=== PATIENT | female | born 1955 | race Caucasian/White ===

== ENCOUNTER 2022-05-18 14:55 | Outpatient (CLI) | payer MEDICARE, BC, SELFPAY ==
[2022-05-18 11:21] LABS: Albumin* 4.6 g/dL (3.3-5.0); Chloride* 104 mmol/L (96-114); Sodium* 139 mmol/L (135-149)
[2022-05-18 11:22] LABS: Potassium* 4.4 mmol/L (3.6-5.1)
[2022-05-18 11:23] LABS: Cholesterol* 185 mg/dL (90-199)
[2022-05-18 11:24] LABS: Alanine Aminotransferase* 17 U/L (4-35); Alkaline Phosphatase* 113 U/L (40-150); Aspartate Amino Transferase* 30 U/L (12-35); Bilirubin Total* 0.8 mg/dL (0.1-1.5); Blood Urea Nitrogen* 18 mg/dL (7-30); Carbon Dioxide* 25 mmol/L (20-32); Creatinine* 0.6 mg/dL (0.5-1.5); Estimated Glomerular Filt Rate 98 ml/min; Glucose* 95 mg/dL (60-115); Total Protein* 7.3 g/dL (6.0-8.3); Triglycerides* 93 mg/dL (40-149)
[2022-05-18 11:25] LABS: Calcium* 9.9 mg/dL (8.4-10.6); HDL Cholesterol* 72 mg/dL (>=50); LDL Cholesterol Calculated 94 mg/dL (<100)
== END 2022-05-18 14:56 | disposition home or self-care (01) ==
PROVIDERS: PCP Family Medicine; Visit Provider Family Medicine
DX: Z00.00 Encounter for general adult medical examination without abnormal findings (principal); E78.5 Hyperlipidemia, unspecified; M81.0 Age-related osteoporosis without current pathological fracture; R03.0 Elevated blood-pressure reading, without diagnosis of hypertension; R39.15 Urgency of urination
CPT/HCPCS: 80053; 80061

== ENCOUNTER 2022-05-19 07:51 | Outpatient (CLI) | payer MEDICARE, BC, SELFPAY ==
[2022-05-19 12:18] LABS: Vitamin D 25 Hydroxy* 61 ng/mL (30-80)
== END 2022-05-19 07:52 | disposition home or self-care (01) ==
LOC: NFLDREF 07:52
PROVIDERS: PCP Family Medicine; Visit Provider Family Medicine
DX: Z00.00 Encounter for general adult medical examination without abnormal findings (principal); E78.5 Hyperlipidemia, unspecified; R03.0 Elevated blood-pressure reading, without diagnosis of hypertension; M81.0 Age-related osteoporosis without current pathological fracture; R39.15 Urgency of urination
CPT/HCPCS: 82306

== ENCOUNTER 2022-06-30 13:11 | Outpatient (CLI) | payer MEDICARE, BC, SELFPAY ==
--- NOTE | 2022-06-30 13:30 | CRLHL7_ITS ---
For Patients: As a result of the Century Cures Act, medical imaging exams and procedure reports are released immediately into your electronic medical record. You may view this report before your referring provider. If you have questions, please contact your health care provider. DXA BONE MINERAL DENSITY STUDY Current height (in): 68. Weight (lb): 159. Menopause age: 50. Ethnicity: White. 1. Have you had a previous hip or vertebral fracture? No. 2. Have you had any fractures during your adult life which did not result from significant trauma (e.g., auto accident)? No. 3. Did either of your parents have a hip fracture? No. 4. Do you smoke? No. 5. Have you ever taken Glucocorticoids? No. 6. Do you have rheumatoid arthritis? No. 7. Do you have secondary osteoporosis? No. 8. Do you drink 3 or more alcoholic drinks per day? No. 9. Are you being treated for osteoporosis? No. 10. Have you ever taken any of the following medications: Actonel, Evista, Fosamax, Miacalcin, Reclast, Boniva, Forteo, HRT (i.e. estrogen/hormone therapy), Protelos, Prolia, Vitamin D, Calcium, other ??? please specify. ANSWER: Yes, vitamin D, calcium. 11. Do you have any of the following medical conditions: Anorexia or bulimia, asthma or emphysema, end stage renal disease, hyperparathyroidism, any seizure disorders, cancer, inflammatory bowel diseases, hysterectomy, other ??? please specify. ANSWER: Yes, Hysterectomy. 12. What was your maximum height (inches)? 68. 13. Do you perform weight bearing exercise regularly? Yes. 14. Do you regularly consume dairy products? Yes. 15. Do you drink caffeinated beverages? Yes. 16. At what age did your period start? 12. 17. Are you premenopausal? No. 18. How many full term pregnancies have you had? 2 19. Have you ever missed your period for more than 6 months in a row (not including or menopause)? No. TECHNIQUE: Bone mineral density study was performed using the [employer]. FINDINGS: The results of the study expressed as bone mineral density (BMD) are as follows: Lumbar spine L1 to L4: BMD: 0.686 g/cm2. T-score: -3.3. Z-score: -1.3. Neck Left: BMD: 0.560 g/cm2. T-score: -2.6. Z-score: -0.9. Right: BMD: 0.605 g/cm2. T-score: -2.2. Z-score: -0.5. Total Left: BMD: 0.699 g/cm2. T-score: -2.0. Z-score: -0.6. Right: BMD: 0.687 g/cm2. T-score: -2.1. Z-score: -0.7. IMPRESSION: Osteoporosis. *Comparison exams done prior to 03/2020 were performed on different unit, [employer] COMPARISON: Compared with scan of 06/19/2020, the bone mineral density has increased by 2.4 percent at the spine and decreased by 2.2 percent at the hip. Curtis Wise M.D. Diagnostic Radiologist [email or web address] KEVIN/Dictated by: Curtis Wise MD @ 06/30/2022 2:02:00 PM (Electronically Signed)
--- NOTE | 2022-06-30 14:00 | CRLHL7_ITS ---
For Patients: As a result of the Century Cures Act, medical imaging exams and procedure reports are released immediately into your electronic medical record. You may view this report before your referring provider. If you have questions, please contact your health care provider. BILATERAL SCREENING MAMMOGRAM WITH COMPUTER-AIDED DETECTION AND TOMOSYNTHESIS TECHNIQUE: CC and MLO views were obtained. These mammographic images have been obtained using full-field digital technique. These mammographic images were interpreted with the benefit of computer-aided detection. Breast Tomosynthesis was used in this interpretation. COMPARISON FILM: 06/30/21, 06/22/21, 06/19/20, MT-outside 05/30/2019 FINDINGS: The breasts are heterogeneously dense, which may obscure small masses. IMPRESSION: There is no radiographic evidence for malignancy. ASSESSMENT: BI-RADS Category 2: Benign RECOMMENDATION: Routine screening mammogram in 1 year. A lay language report of this examination will be provided to the patient. Curtis Wise M.D. Diagnostic Radiologist [email or web address] Transcribed: 1:02 p.m PT/Dictated by: Curtis Wise MD @ 07/01/2022 9:31:00 AM (Electronically Signed)
== END 2022-06-30 13:12 | disposition home or self-care (01) ==
LOC: RAD 13:13
PROVIDERS: PCP Family Medicine; Visit Provider Family Medicine
DX: Z12.31 Encounter for screening mammogram for malignant neoplasm of breast (principal); R92.8 Other abnormal and inconclusive findings on diagnostic imaging of breast; M81.0 Age-related osteoporosis without current pathological fracture
CPT/HCPCS: 77063; 77067; 77080

== ENCOUNTER 2023-05-17 07:20 | Outpatient (CLI) | payer MEDICARE, BC, SELFPAY | END 2023-05-17 07:21 | disposition home or self-care (01) | LOC: NFLDREF 12:32 | PROVIDERS: PCP Family Medicine; Referring Provider Family Medicine; Visit Provider Family Medicine | DX: R03.0 Elevated blood-pressure reading, without diagnosis of hypertension (principal); E78.5 Hyperlipidemia, unspecified; M81.0 Age-related osteoporosis without current pathological fracture | CPT/HCPCS: 80053; 80061; 82306 ==

== ENCOUNTER 2023-06-24 12:03 | Outpatient (CLI) | payer MEDICARE, BC, SELFPAY | END 2023-06-24 12:04 | disposition home or self-care (01) | LOC: NFLDREF 12:06 | PROVIDERS: PCP Family Medicine; Visit Provider Obstetrics & Gynecology | DX: L90.0 Lichen sclerosus et atrophicus (principal); R00.2 Palpitations | CPT/HCPCS: 84443 ==

== ENCOUNTER 2023-07-07 13:04 | Outpatient (CLI) | payer MEDICARE, BC, SELFPAY ==
--- NOTE | 2023-07-07 13:20 | CRLHL7_ITS ---
For Patients: As a result of the Century Cures Act, medical imaging exams and procedure reports are released immediately into your electronic medical record. You may view this report before your referring provider. If you have questions, please contact your health care provider. BILATERAL SCREENING MAMMOGRAM WITH COMPUTER-AIDED DETECTION AND TOMOSYNTHESIS TECHNIQUE: CC and MLO views were obtained. These mammographic images have been obtained using full-field digital technique. These mammographic images were interpreted with the benefit of computer-aided detection. Breast Tomosynthesis was used in this interpretation. COMPARISON FILM: 06/30/22, 06/22/21, 06/19/20. FINDINGS: The breasts are heterogeneously dense, which may obscure small masses IMPRESSION: There is no radiographic evidence for malignancy. ASSESSMENT: BI-RADS Category 2: Benign RECOMMENDATION: Routine screening mammogram in 1 year. A lay language report of this examination will be provided to the patient. Curtis Wise M.D. Diagnostic Radiologist [email or web address] KEVIN/Dictated by: Curtis Wise MD @ 07/08/2023 1:18:00 PM (Electronically Signed)
== END 2023-07-07 13:05 | disposition home or self-care (01) ==
LOC: MAMMO 13:05
PROVIDERS: PCP Family Medicine; Visit Provider Family Medicine
DX: Z12.31 Encounter for screening mammogram for malignant neoplasm of breast (principal); R92.2 Inconclusive mammogram
CPT/HCPCS: 77063; 77067

== ENCOUNTER 2024-05-15 07:30 | Outpatient (CLI) | payer MEDICARE, BC, SELFPAY | END 2024-05-15 07:31 | disposition home or self-care (01) | LOC: NFLDREF 05-16 11:19 | PROVIDERS: PCP Family Medicine; Referring Provider Family Medicine; Visit Provider Family Medicine | DX: M81.0 Age-related osteoporosis without current pathological fracture (principal); E78.5 Hyperlipidemia, unspecified; R03.0 Elevated blood-pressure reading, without diagnosis of hypertension | CPT/HCPCS: 80061; 82306; 82947 ==

== ENCOUNTER 2024-06-27 13:09 | Outpatient (CLI) | payer MEDICARE, BC, SELFPAY ==
--- NOTE | 2024-06-27 13:30 | CRLHL7_ITS ---
For Patients: As a result of the Century Cures Act, medical imaging exams and procedure reports are released immediately into your electronic medical record. You may view this report before your referring provider. If you have questions, please contact your health care provider. DXA BONE MINERAL DENSITY STUDY Current height (in): 68. Weight (lb): 168. Menopause age: 50. Ethnicity: White. 1. Have you had a previous hip or vertebral fracture? No. 2. Have you had any fractures during your adult life which did not result from significant trauma (e.g., auto accident)? No. 3. Did either of your parents have a hip fracture? No. 4. Do you smoke? No. 5. Have you ever taken Glucocorticoids? No. 6. Do you have rheumatoid arthritis? No. 7. Do you have secondary osteoporosis? No. 8. Do you drink 3 or more alcoholic drinks per day? No. 9. Are you being treated for osteoporosis? Yes. 10. Have you ever taken any of the following medications: Actonel, Evista, Fosamax, Miacalcin, Reclast, Boniva, Forteo, HRT (i.e. estrogen/hormone therapy), Protelos, Prolia, Vitamin D, Calcium, other ??? please specify. ANSWER: Yes, vitamin D, calcium. 11. Do you have any of the following medical conditions: Anorexia or bulimia, asthma or emphysema, end stage renal disease, hyperparathyroidism, any seizure disorders, cancer, inflammatory bowel diseases, hysterectomy, other ??? please specify. ANSWER: Yes, hysterectomy. 12. What was your maximum height (inches)? 68. 13. Do you perform weight bearing exercise regularly? Yes. 14. Do you regularly consume dairy products? Yes. No. 15. Do you drink caffeinated beverages? Yes. 16. At what age did your period start? 12. 17. Are you premenopausal? No. 18. How many full term pregnancies have you had? 2. 19. Have you ever missed your period for more than 6 months in a row (not including or menopause)? No. TECHNIQUE: Bone mineral density study was performed using the [employer]. FINDINGS: The results of the study expressed as bone mineral density (BMD) are as follows: Lumbar spine L1 to L4: BMD: 0.777 g/cm2. T-score: -2.5. Z-score: 0.4. Neck Left: BMD: 0.593 g/cm2. T-score: -2.3. Z-score: -0.5. Right: BMD: 0.617 g/cm2. T-score: -2.1. Z-score: -0.3. Total Left: BMD: 0.716 g/cm2. T-score: -1.9. Z-score: -0.4. Right: BMD: 0.751 g/cm2. T-score: -1.6. Z-score: 0.1. IMPRESSION: Osteoporosis. *Comparison exams done prior to 03/2020 were performed on different unit, [employer]. COMPARISON: Compared with scan of 06/30/2022, the bone mineral density has increased by 13.3 percent at the spine and increased by 5.9 percent at the hip. Compared with scan of 06/19/2020, the bone mineral density has increased by 2.4 percent at the spine and decreased by 2.2 percent at the hip. Aarti Forrester M.D. Diagnostic/Breast Radiologist [email or web address] KEVIN/Dictated by: Aarti Forrester MD @ 06/27/2024 3:43:00 PM (Electronically Signed)
== END 2024-06-27 13:10 | disposition home or self-care (01) ==
LOC: RAD 13:10
PROVIDERS: PCP Family Medicine; Visit Provider Family Medicine
DX: M81.0 Age-related osteoporosis without current pathological fracture (principal)
CPT/HCPCS: 77080

== ENCOUNTER 2024-07-09 12:44 | Outpatient (CLI) | payer MEDICARE, BC, SELFPAY ==
--- NOTE | 2024-07-09 13:00 | MR_ITS ---
[address] [address] Phone:?[phone] Fax:?[phone] Referring Physician Information: Frank Mclean M.D. [address] [facility] [address] Phone:?[phone] Fax:?[phone] Patient:?Simran Crocker D.O.B:?1955 Sex:?Female Phone:?[phone] [facility] MRN:?[id number] Exam Date:?07/09/2024 EXAM: MRI OF THE LUMBAR SPINE WITHOUT CONTRAST CLINICAL INFORMATION: Lumbar intervertebral disc degeneration. TECHNICAL INFORMATION: Sagittal fast spin-echo T2-weighted, T1-weighted, STIR as well as axial fast spin-echo T1 and T2-weighted images of the lumbar spine were obtained on a 1.5 Tamie MRI scanner.?SEDATION:?None.?CONTRAST:?None. INTERPRETATION: Correlation made with prior radiographs 06/29/2024. Generalized levocurvature. No acute fracture or spondylolysis, although edematous degenerative endplate changes are demonstrated right laterally at L2- 3. Conus is normal and terminates at T12-L1. Imaged upper sacrum and paraspinal soft tissue structures are unremarkable. Disc desiccation and annular bulging are demonstrated at L5-S1 through L2-3. Disc space narrowing is mild at L5-S1, moderately severe left laterally at L4-5, moderate left laterally at L3-4, severe at laterally at L2-3. L5-S1: 8 mm AP diameter right posterolateral disc extrusion (with some areas of interspersed internal increased T2 signal), resultant severe right subarticular recess narrowing and impingement upon the traversing right S1 nerve root, but no central stenosis. Mild bilateral facet hypertrophy with mild bilateral chronic foraminal narrowing. L4-5: Chronic mild left subarticular recess narrowing without traversing neural compression or central stenosis. Mild left facet arthrosis with mild right/mild to moderate left chronic foraminal narrowing. L3-4: Chronic mild left subarticular recess narrowing without traversing neural compression or central stenosis. Mild bilateral facet hypertrophy with mild bilateral chronic foraminal narrowing. L2-3: No central stenosis or traversing neural compression. Mild bilateral facet hypertrophy with mild left and mild to moderate right chronic foraminal narrowing. L1-2 through T11-12: Normal posterior disc margins and facets. Patent foramina. CONCLUSION: Multilevel degenerative lumbar spondylosis with the following notable findings: 1. 8 mm AP diameter right posterolateral L5-S1 disc extrusion (possibly with a contained internal hemorrhagic component) and resultant subarticular impingement upon the traversing right S1 nerve root, but no central stenosis. 2. No acute fracture or spondylolysis, although edematous degenerative endplate changes are demonstrated right laterally at L2-3. 3. Mild left L4-5 facet arthrosis. 4. Multilevel chronic foraminal narrowing that varies from mild to mild/moderate without ganglionic compression as detailed above. SC Electronically signed on 07/09/2024 4:50:00 PM by Fady Gresham M.D.
== END 2024-07-09 12:45 | disposition home or self-care (01) ==
LOC: MRI 12:45
PROVIDERS: PCP Family Medicine; Visit Provider Orthopaedic Surgery Sports Medicine
DX: M51.36 Other intervertebral disc degeneration, lumbar region (principal); M47.896 Other spondylosis, lumbar region; M16.12 Unilateral primary osteoarthritis, left hip; M54.16 Radiculopathy, lumbar region
CPT/HCPCS: 72148

== ENCOUNTER 2024-07-20 07:30 | Outpatient (RCR) | payer MEDICARE, BC, SELFPAY ==
--- NOTE | 2024-06-08 16:38 | PT.OPEX ---
PT [facility] Outpatient Eval PT [facility] Outpatient Eval Start: 06/08/24 07:25 Freq: Status: Active Protocol: Document 06/08/24 07:26 VINCE (Rec: 06/08/24 16:35 [facility] [id number]) E-signed By Aleksandra Feldman PT Physical Therapy Outpatient Evaluation Insurance Information Recert Due Date 06/08/24 Insurance Name Medicare B Medical Diagnosis BILATERAL KNEE OA SCIATICA Treating Diagnosis BILATERAL KNEE PAIN SCIATICA Imaging Report Information XRAYS: RIGHT KNEE: Severe narrowing of the medial tibiofemoral compartment joint space. Mild/moderate narrowing of lateral tibiofemoral compartment joint space. Small marginal osteophytes. No acute fracture. Left knee: Moderate to severe narrowing of the medial tibiofemoral compartment joint space. Mild/ moderate narrowing of the lateral tibiofemoral compartment joint space. No acute fracture. Referring MD PIKE Subjective Preferred Name SHAYLA Subjective PATIENT REPORTS SEVERAL INSTANCES OVER THE PAST 10-15 YRS WHERE SHE HAS PERFORMED LEFT ROTATION COMBINED WITH LIFTING THAT HAS FLARED HER RIGHT GLUT/SCIATIC. SHE HAD AN MRI ~10YRS AGO THAT SHE REPORTS WERE UNREMARKABLE. ROUGHLY 1MO AGO SHE WAS PICKING UP A COOLER THAT INVOLVED REACHING DOWN TWD HER LEFT AND LIFTING SHE RETURN TO [facility] WHICH IMMEDIATELY FLARED HER SCIATICA UP ONCE AGAIN. SHE HAS BEEN TAKING IBUPROFEN PRN AND SLEEPING ON THE COUCH D/T HER PREFERRED POSITION TO SLEEP IS PRONE. WHEN ROLLS OUT > THAT ROLLING INTO PRONE PRODUCES IMMEDIATE PAIN TO HER RIGHT POSTERIOR HIP EXTENDING TO HER KNEE. HER KNEES ARE NOT THE GREATEST CONCERN AT THIS TIME AND UNDERSTANDS THAT THE BOTH ARE BONE ON BONE BUT CONTINUES TO PUSH THROUGH HER 2MI/DAY WALK. SHE FINDS MOST OF HER PAIN WHEN SHE WALKS IS HER SCIATICA. Pain Comments 05/02 Current Work Status Retired Assessment Assessment/Impression PATIENT IS A 68 [address] PIKE FOR BILATERAL KNEE PAIN AND RIGHT SIDED SCIATICA; PMHX INCLUDES BUT NOT LIMITED OSTEOPOROSIS, HTN, HLD, AND H/O BACK PAIN. SHE DEMONSTRATES BILATERAL TIGHTNESS ABOUT HER HIPS RIGHT >LEFT, LUMBAR SPINE BOTH FLEX AND EXT SIGNIFICANT FOR LACK OF LORDOSIS NOTING A POSTERIORLY ROTATED RIGHT PSIS . MMT REVEALS 4-/5 GLUT R/L, 4 /5 HIP FLEX R/L, 5/5 KNEE EXT 4/5 HAMSTRING; NORMAL PATELLAR TENDON REFLEX 2+; SHE DESCRIBES INCREASED PAIN IN GLUT AND HAMSTRING WITH SITING , STANDING, LAYING SUPINE >5'; WHEN LYING PRONE, SHE DID NOT CENTRALIZE AND WITH PRONE ON ELBOWS SHE EXPERIENCED PERIPHERALIZATION TO FOOT THAT RESOLVED SOON SHE RETURN PRONE. POSTIVE SLR ON RIGHT AND ABSENT WHEN HIP IS 90DEGREES PERFORMING FLOSSING. WE DISCUSSED, AT LENGTH, THE PATHOPHYSIOLOGY OF SCIATICA ALONG WITH ANATOMY OF THE LUMBOPELVIC/HIP JOINT. SHE WOULD BENEFIT FROM SKILLED PHYSICAL THERAPY TO ADDRESS SYMPTOM MGMT, INCREASE LUMBOPELVIC FLEXIBILITY, CORE/ HIP STRENGTHENING, AND IMPROVE ROM. SHE VERBALIZED UNDERSTANDING TO ALL SKILLED INSTRUCTION AND APPROPRIATE FOR SKILLED PHYSICAL THERAPY Primary Functional Limitations PROLONG SITTING, STDG, LAYING SUPINE >5' WALKING COMMUNITY DISTANCES STOOPING, SQUATTING, STAIRS Plan of Care Rehabilitation Potential Good Physical Therapy Goals 1. DECREASE R/L HIP/HAMSTRING PAIN TO </2-3/10 WITH DAILY ACTIVITIES AND WITH THE PROGRESSION OF PHYSICAL THERAPY PROGRAM OVER THE NEXT 3-4 WEEKS 2. IMPROVE R HIP ROM TO WFL OVER THE NEXT 4-6 WEEKS FOR IMPROVED GAIT MECHANICS, RETURN TO TRANSFERS W/O ASSISTANCE AND WITH EASE, AND RETURN TO ASCENDING/DESCENDING STAIRS WITH RECIPROCAL GAIT 3. IMPROVE CORE/LE COMPLEX STRENGTH OVER THE NEXT 6-8 WEEKS FOR RETURN TO TRANSFERS WITH EASE, NORMAL GAIT WITH/ WITHOUT AD, AND STANDING/ WALKING >10MIN WITHOUT A FLARE UP OF PAIN 4. PATIENT WILL BE INDEPENDENT WITH HIS HEP WITHIN 8-12 WEEKS FOR PROGRESSION TOWARD ABOVE GOALS, ONGOING IMPROVEMENT OF PAIN/SYMPTOMS, ROM, STRENGTH, AND MOBILITY TO RETURN TO DAILY ACTIVITIES AND FAMILY CENTERED ACTIVITIES W/O FLARE UP OF PAIN/SYMPTOMS Coordination/Communication With Referral Source Treatment Plan/Direct Interventions Electrical Stimulation,Heat, Ice/Cold/Vasopneumatic,Joint Mobilization,Manual Therapy, Neuromuscular Re-ed,Self-Care/ Home Management,Therapeutic Activities,Therapeutic Exercises Frequency/Duration 1X/WK Patient Will Be Discharged From Therapy Completion of LTG(s), Independent w/HEP Evaluation Billing Untimed Code Treatment Minutes 20 PT Eval No Charge No Complexity Moderate Certification Information Provider Signature Required Yes Provider Signature Shows Agreement With POC & Medical Necessity Physician NPI Number Write NPI# Here Physician Comment/Change : Physician Signature & Date Requested Please Sign/Date Here
== END 2024-09-03 13:52 | disposition home or self-care (01) ==
PROVIDERS: PCP Family Medicine; Visit Provider Family Medicine
DX: M17.0 Bilateral primary osteoarthritis of knee (principal); M54.31 Sciatica, right side; Z51.89 Encounter for other specified aftercare
CPT/HCPCS: 97110; 97162

== ENCOUNTER 2024-08-21 13:06 | Outpatient (CLI) | payer MEDICARE, BC, SELFPAY ==
--- NOTE | 2024-08-21 13:20 | CRLHL7_ITS ---
For Patients: As a result of the Century Cures Act, medical imaging exams and procedure reports are released immediately into your electronic medical record. You may view this report before your referring provider. If you have questions, please contact your health care provider. BILATERAL SCREENING MAMMOGRAM WITH COMPUTER-AIDED DETECTION AND TOMOSYNTHESIS TECHNIQUE: CC and MLO views were obtained. These mammographic images have been obtained using full-field digital technique. These mammographic images were interpreted with the benefit of computer-aided detection. Breast Tomosynthesis was used in this interpretation. COMPARISON FILM: 07/10/23, 06/30/22, 06/22/21. FINDINGS: The breasts are heterogeneously dense, which may obscure small masses IMPRESSION: There is no radiographic evidence for malignancy. ASSESSMENT: BI-RADS Category 2: Benign RECOMMENDATION: Routine screening mammogram in 1 year. A lay language report of this examination will be provided to the patient. Curtis Wise M.D. Diagnostic Radiologist [email or web address] KEVIN/Dictated by: Curtis Wise MD @ 08/22/2024 9:30:00 AM (Electronically Signed)
== END 2024-08-21 13:07 | disposition home or self-care (01) ==
LOC: MAMMO 13:07
PROVIDERS: PCP Family Medicine; Visit Provider Family Medicine
DX: Z12.31 Encounter for screening mammogram for malignant neoplasm of breast (principal); R92.333 Mammographic heterogeneous density, bilateral breasts
CPT/HCPCS: 77063; 77067

== ENCOUNTER 2024-09-11 08:10 | Outpatient (CLI) | payer MEDICARE, BC, SELFPAY | END 2024-09-11 08:11 | disposition home or self-care (01) | LOC: NFLDREF 09-14 23:52 | PROVIDERS: PCP Family Medicine; Referring Provider Family Medicine; Visit Provider Family Medicine | DX: I10 Essential (primary) hypertension (principal) | CPT/HCPCS: 80048 ==

== ENCOUNTER 2024-10-08 06:46 | Day surgery (SDC) | payer MEDICARE, BC, SELFPAY ==
[2024-10-08] VITALS (20 sets, daily range): BP systolic 110–147; BP diastolic 59–83; PULSE 62–90; RESP 13–18; TEMP 36.1–36.9; O2SAT 97–100; BMI 25.6
[2024-10-08] MEDS: ACETAMINOPHEN 500 MG TABLET 1000 MG PO (07:30)
[2024-10-08] MEDS: LACTATED RINGERS 1000 ML 1,000 ML 100 ML IV (07:30)
[2024-10-08] MEDS: OXYCODONE (CR) 10 MG TAB.ER.12H PO (07:30)
[2024-10-08] MEDS: SODIUM CHLORIDE 0.9 % (FLUSH) 10 ML SYRINGE IVF (07:30)
--- NOTE | 2024-10-08 07:35 | W.PM.H&PU ---
History & Physical Update History & Physical Update H&P Reviewed and patient assessed: No changes noted
--- NOTE | 2024-10-08 08:34 | SUR.PREOP ---
TIME?OUT:?0843 PT/RN/MDA?VERIFICATION?OF?SURGICAL?SITE,?PROCEDURE,?AND?CONSENT OBTAINED?PRIOR?TO?INVASIVE?PROCEDURE.
[2024-10-08] MEDS: fentaNYL 100 MCG/2 ML inj IVP (08:44)
[2024-10-08] MEDS: MIDAZOLAM HCL 1 MG/ML inj IVP (08:44)
[2024-10-08] MEDS: CEFAZOLIN 2 GM in 0.9 % SODIUM CHLORIDE Mini-bag 100 ML IVPB (09:17)
[2024-10-08] MEDS: TRANEXAMIC ACID 100 MG/ML INJ 1000 MG IV (09:20)
--- NOTE | 2024-10-08 09:28 | W.PM.NB ---
Nerve Block Nerve Block Time Seen by Provider: 08:47 Date Seen: 10/08/24 Type of block requested by surgeon for post-operative analgesia: geniculars Side: right Time out performed: Yes Verification of patient name: Yes Verification of date of : Yes Site marking: site marked Name of person performing procedure: Mich Continuous monitoring Was continuous monitoring of O2 sat, B/P, beaver trapper, recorded every 15 minutes?: Yes Procedure Checklist: sterile prep, needles and gloves Ultrasound guided. Images saved: Yes Medications given in 5ml increments after negative aspiration: Marcaine %: 0.25 mL: 9 Needle gauge: 25 Patient tolerated procedure well: Yes Block Charges Block Charge (with Pro Fee): Genicular Nerve Block
--- NOTE | 2024-10-08 09:29 | W.PM.NB ---
Nerve Block Nerve Block Time Seen by Provider: 08:47 Date Seen: 10/08/24 Type of block requested by surgeon for post-operative analgesia: adductor canal Side: right Time out performed: Yes Verification of patient name: Yes Verification of date of : Yes Site marking: site marked Name of person performing procedure: Mich Continuous monitoring Was continuous monitoring of O2 sat, B/P, monitor worker, recorded every 15 minutes?: Yes Procedure Checklist: sterile prep, needles and gloves Ultrasound guided. Images saved: Yes Medications given in 5ml increments after negative aspiration: Marcaine %: 0.25 mL: 15 Needle gauge: 20 Precedex (mcg): 25 Patient tolerated procedure well: Yes Block Charges Block Charge (with Pro Fee): Femoral Nerve Use of Ultrasound Machine for Block: Yes- US Guidance/pain block
--- NOTE | 2024-10-08 10:02 | CRLHL7_ITS ---
For Patients: As a result of the Cures Act, medical imaging exams and procedure reports are released immediately into your electronic medical record. You may view this report before your referring provider. If you have questions, please contact your health care provider. Indication: Total knee replacement Technique: Two views right knee Findings/Impression: Hardware from a right total knee arthroplasty is in satisfactory position. Bone alignment is normal. No sign of acute fracture. Postop changes are within normal limits. Dictated by Curtis Wise MD @ 10/08/2024 11:42:24 AM (Electronically Signed)
--- NOTE | 2024-10-08 10:33 | PM.ORPRC ---
Procedure Note Date of procedure: 10/08/24 Procedure: PREOPERATIVE DIAGNOSIS: 1. Right knee osteoarthritis, primary, severe POSTOPERATIVE DIAGNOSIS: 1. Right knee osteoarthritis, primary, severe PROCEDURE: 1. Right total knee arthroplasty - subvastus SURGEON: Frank Mclean MD. BIZTALK ARCHITECT: NASIMA Wellington - Of note, a skilled business development assistant was critical for this case to aid in patient positioning, tissue retraction, limb manipulation/positioning, and closure. ANESTHESIA: Spinal anesthetic IMPLANTS: DePuy J&J all cemented TKA - Attune PS femur size 6 Size 6 tibia 6 mm poly spacer 35 mm patella TOURNIQUET: 80 minutes at 300 torr EBL: 50 ml COMPLICATIONS: None evident INDICATIONS: The patient is a pleasant 68-year-old female who has experienced severe right knee pain and difficulty bearing weight. Workup included x-rays which revealed severe osteoarthrosis in the knee. Given the deformity, the dysfunction, and the pain, as well as the failure of nonoperative management, recommendation was made for surgery. FINDINGS: Full-thickness chondral loss diffusely throughout the medial compartment especially. To lesser degree lateral compartment and patellofemoral compartment. Degenerative meniscus pathology medial greater than lateral. Porous cancellous bone encountered after irrigation. Large effusion upon entering the joint. DESCRIPTION OF PROCEDURE: Following a thorough discussion of risks, benefits, and alternatives consent was obtained and the right knee was marked. The patient was brought to the operating room and placed supine on the operating table. Induction of anesthesia was undertaken. 1 g IV Ancef and 1 g tranexamic acid was administered within 1 hr of incision preoperatively. Proper time-out was performed identifying proper patient, site, procedure. The operative extremity was prepped and draped in the appropriate sterile fashion using ChloraPrep after the patient was positioned supine with all bony prominences well padded. A longitudinal, anterior, midline skin incision was made starting approximately 3cm proximal to the superior pole of the patella and advanced distal to the tibial tubercle. A subvastus approach was utilized. A medial subperiosteal sleeve was created with knife, barnett elevator and curved osteotome. The retropatellar fatpad was resected and the synovium in the suprapatellar pouch excised to visualize the anterior femoral cortex. Femoral preparation was performed via an intramedullary guide. Step drill allowed access into the femoral canal. The distal cutting guide was placed with 5? of valgus and 10 mm cut on the distal femur. Femur was sized using a posterior referencing guide in 3? of external rotation. This found have a best fit with the sizing noted above. The 4 in 1 cutting block was then placed, and the distal femur shaped accordingly. The box cut was then created and the trial implant inserted to confirm appropriate fit. We turned our attention to the proximal tibia. Extramedullary guide was utilized for cutting with the goal of being 90 degree cut from the mechanical axis of the tibia in the varus/valgus plane utilizing tibial crest as the primary alignment. Initially a 2 mm resection was performed from the medial tibial plateau. Ultimately, balancing was achieved in both flexion and extension in both varus and valgus. The knee was able to achieve full extension as well comfortably. The patella was initially measured and found have a thickness of 23 mm. It was resected back to approximately 14.5 mm. It was sized to be a best fit with as noted above. This was drilled, trial placed. All trials were placed and found to have an excellent stability and balance. At this stage, trial implants were removed, the knee was thoroughly irrigated with normal saline, and the cement was mixed. After irrigation, the knee was thoroughly dried, and cement placed, with the real tibial and femoral implants placed along with the patella. Trial poly spacer was placed and confirmed to have excellent range of motion and full extension, and the real poly spacer opened and inserted. All extra cement was removed, and a 3 min Betadine soak performed. Finally, a final irrigation round with normal saline was performed. Closure performed with 0 Vicryl and #0 Stratafix for the quad tendon/retinaculum. 2-0 Vicryl for the subcutaneous and 4-0 Stratafix for subcuticular closure. Dressings were applied and the patient was awoken from anesthesia after the tourniquet deflated and transferred the PACU in stable condition. A skilled business development assistant was critical for this case to aid in patient positioning, tissue retraction, bone exposure, limb manipulation/positioning, patient safety, and closure. PLAN: 1. Weight bear as tolerated operative extremity. 2. 23 hr perioperative antibiotics. 3. Ice. 4. PT/OT consults for ambulation assistance/mobility education. 5. Social work consult for discharge planning. 6. DVT prophylaxis with at SCDs and aspirin twice daily.
--- NOTE | 2024-10-08 11:06 | W.ANESCHARGE ---
Anesthesia Charges Start Date/Time Anesthesia Start Date: 10/08/24 Anesthesia Start Time: 09:11 Stop Date/Time Anesthesia Stop Date: 10/08/24 Anesthesia Stop Time: 11:05
[2024-10-08] MEDS: ONDANSETRON 2 MG/ML inj 4 MG IVP (11:23)
--- NOTE | 2024-10-08 11:37 | SUR.PHASEI ---
patient met discharg criteria per anesthesia
[2024-10-08] MEDS: METOCLOPRAMIDE HCL 5 MG/ML INJ 10 MG IVP (13:00)
== END 2024-10-08 15:27 | disposition home or self-care (01) ==
LOC: OR 06:46
PROVIDERS: PCP Family Medicine; Visit Provider Orthopaedic Surgery Sports Medicine
PROC: (CPT 27447; principal; 2024-10-08 08:45)
DX: M17.11 Unilateral primary osteoarthritis, right knee (principal); M23.200 Derangement of unspecified lateral meniscus due to old tear or injury, right knee; M23.203 Derangement of unspecified medial meniscus due to old tear or injury, right knee; G89.18 Other acute postprocedural pain; I10 Essential (primary) hypertension; M51.16 Intervertebral disc disorders with radiculopathy, lumbar region
CPT/HCPCS: 27447; 01402; 64447; 64454; 73560; 76942; 97110; 97116; 97161; 97530; A9270; C1776; J0665; J0690; J2250; J2371; J2405; J2704; J2765; J3010; J7120

== ENCOUNTER 2024-11-22 14:45 | Outpatient (RCR) | payer MEDICARE, BC, SELFPAY | END 2024-12-27 13:10 | disposition home or self-care (01) | PROVIDERS: PCP Family Medicine; Visit Provider Family Medicine | DX: M17.11 Unilateral primary osteoarthritis, right knee (principal); Z96.651 Presence of right artificial knee joint; M25.561 Pain in right knee; R53.1 Weakness; R26.89 Other abnormalities of gait and mobility; Z51.89 Encounter for other specified aftercare | CPT/HCPCS: 97110; 97112; 97140; 97161; 97164; 97535 ==

== ENCOUNTER 2025-03-19 08:28 | Outpatient (CLI) | payer MEDICARE, BC, SELFPAY | END 2025-03-19 08:29 | disposition home or self-care (01) | LOC: NFLDREF 08:29 | PROVIDERS: PCP Family Medicine; Visit Provider Family Medicine | DX: I10 Essential (primary) hypertension (principal) | CPT/HCPCS: 80048 ==

== ENCOUNTER 2025-04-01 06:50 | Day surgery (SDC) | payer MEDICARE, BC, SELFPAY ==
[2025-04-01] VITALS (29 sets, daily range): BP systolic 93–149; BP diastolic 53–86; PULSE 54–87; RESP 13–17; TEMP 36.1–36.8; O2SAT 96–100; BMI 25.5
[2025-04-01] MEDS: OXYCODONE (CR) 10 MG TAB.ER.12H PO (07:00)
[2025-04-01] MEDS: ACETAMINOPHEN 500 MG TABLET 1000 MG PO (07:00)
[2025-04-01] MEDS: SODIUM CHLORIDE 0.9 % (FLUSH) 10 ML SYRINGE IVF (07:30)
[2025-04-01] MEDS: LACTATED RINGERS 1000 ML 1,000 ML 100 ML IV ×2 (07:30→12:28)
--- NOTE | 2025-04-01 07:47 | W.PM.H&PU ---
History & Physical Update History & Physical Update H&P Reviewed and patient assessed: No changes noted
[2025-04-01] MEDS: fentaNYL 100 MCG/2 ML inj IVP (08:15)
[2025-04-01] MEDS: MIDAZOLAM HCL 1 MG/ML inj IVP (08:15)
--- NOTE | 2025-04-01 08:16 | SUR.PREOP ---
TIME?OUT:?0814 PT/RN/MDA?VERIFICATION?OF?SURGICAL?SITE,?PROCEDURE,?AND?CONSENT OBTAINED?PRIOR?TO?INVASIVE?PROCEDURE.
[2025-04-01] MEDS: CEFAZOLIN 1 GM inj IVP (09:28)
[2025-04-01] MEDS: TRANEXAMIC ACID 100 MG/ML INJ 1000 MG IV (09:29)
--- NOTE | 2025-04-01 10:08 | P.NB_ITS ---
Nerve Block Nerve Block Time Seen by Provider: 08:15 Date Seen: 04/01/25 Type of block requested by surgeon for post-operative analgesia: adductor canal Side: left Time out performed: Yes Verification of patient name: Yes Verification of date of : Yes Site marking: site marked Name of person performing procedure: Mich Continuous monitoring Was continuous monitoring of O2 sat, B/P, monitoring manager, recorded every 15 minutes?: Yes Procedure Checklist: sterile prep, needles and gloves Ultrasound guided. Images saved: Yes Medications given in 5ml increments after negative aspiration: Marcaine %: 0.25 mL: 15 Needle gauge: 20 Precedex (mcg): 25 Patient tolerated procedure well: Yes Block Charges Block Charge (with Pro Fee): Femoral Nerve Use of Ultrasound Machine for Block: Yes- US Guidance/pain block
--- NOTE | 2025-04-01 10:08 | P.NB_ITS ---
Nerve Block Nerve Block Time Seen by Provider: 08:15 Date Seen: 04/01/25 Type of block requested by surgeon for post-operative analgesia: geniculars Side: left Time out performed: Yes Verification of patient name: Yes Verification of date of : Yes Site marking: site marked Name of person performing procedure: Mich Continuous monitoring Was continuous monitoring of O2 sat, B/P, compliance monitor, recorded every 15 minutes?: Yes Procedure Checklist: sterile prep, needles and gloves Ultrasound guided. Images saved: Yes Medications given in 5ml increments after negative aspiration: Marcaine %: 0.25 mL: 9 Needle gauge: 25 Patient tolerated procedure well: Yes Block Charges Block Charge (with Pro Fee): Genicular Nerve Block
--- NOTE | 2025-04-01 10:08 | P.ANES_ITS ---
Anesthesia Charges Start Date/Time Anesthesia Start Date: 04/01/25 Anesthesia Start Time: 09:12 Stop Date/Time Anesthesia Stop Date: 04/01/25 Anesthesia Stop Time: 11:25 Summary Extremes of Age - Over 70 or under 1: MDA Coding CPT Codes CPT Codes: ANESTH KNEE ARTHROPLASTY - 74567 ([id number]) P2 - PATIENT W/MILD SYST DISEASE, QK - GROUP INSURANCE SPECIAL AGENT 2-4 CNCRNT ANES PROC, QX - SHORTAGE WORKER SVC W/ MD MED DIRECTION Additional Codes: Summary - Extremes of Age - Over 70 or under 1: MDA ([id number])
--- NOTE | 2025-04-01 10:08 | W.ANESCHARGE ---
Anesthesia Charges Start Date/Time Anesthesia Start Date: 04/01/25 Anesthesia Start Time: 09:12 Stop Date/Time Anesthesia Stop Date: 04/01/25 Anesthesia Stop Time: 11:25 Summary Extremes of Age - Over 70 or under 1: MDA Coding CPT Codes CPT Codes: ANESTH KNEE ARTHROPLASTY - 29611 ([id number]) P2 - PATIENT W/MILD SYST DISEASE, QK - TRANSPORTATION BROKER 2-4 CNCRNT ANES PROC, QX - HIGHWAY PATROL PILOT SVC W/ MD MED DIRECTION Additional Codes: Summary - Extremes of Age - Over 70 or under 1: MDA ([id number])
--- NOTE | 2025-04-01 10:38 | P.ORPRC_ITS ---
Procedure Note Date of procedure: 04/01/25 Procedure: PREOPERATIVE DIAGNOSIS: 1. Left knee osteoarthritis, primary, severe POSTOPERATIVE DIAGNOSIS: 1. Left knee osteoarthritis, primary, severe PROCEDURE: 1. Left total knee arthroplasty - subvastus SURGEON: Frank Mclean MD. FLIGHT COMMUNICATIONS OPERATOR: Merary De La O PA-C - Of note, a skilled benefits assistant was critical for this case to aid in patient positioning, tissue retraction, limb manipulation/positioning, and closure. ANESTHESIA: Spinal anesthetic EBL: 50ml IMPLANTS: DePuy J&J all cemented TKA - Attune PS femur size 6 Size 4 tibia 5 poly spacer 35mm patella TOURNIQUET: 80 minutes at 300 torr COMPLICATIONS: None evident INDICATIONS: The patient is a pleasant 69 year old female who has experienced severe left knee pain and difficulty bearing weight. Workup included x-rays which revealed severe osteoarthrosis in the knee. Given the deformity, the dysfunction, and the pain, as well as the failure of nonoperative management, recommendation was made for surgery. FINDINGS: Full-thickness chondral loss diffusely throughout the medial patellofemoral compartment. To lesser degree lateral compartment. Degenerative meniscus pathology medial greater than. Moderate effusion upon entering the joint. DESCRIPTION OF PROCEDURE: Following a thorough discussion of risks, benefits, and alternatives consent was obtained and the left knee was marked. The patient was brought to the operating room and placed supine on the operating table. Induction of anesthesia was undertaken. 2 g IV Ancef and 1 g tranexamic acid was administered within 1 hr of incision preoperatively. Proper time-out was performed identifying proper patient, site, procedure. The operative extremity was prepped and draped in the appropriate sterile fashion using ChloraPrep after the patient was positioned supine with all bony prominences well padded. A longitudinal, anterior, midline skin incision was made starting approximately 3cm proximal to the superior pole of the patella and advanced distal to the tibial tubercle. A subvastus approach was utilized. A medial subperiosteal sleeve was created with knife, barnett elevator and curved osteotome. The retropatellar fatpad was resected and the synovium in the suprapatellar pouch excised to visualize the anterior femoral cortex. Femoral preparation was performed via an intramedullary guide. Step drill allowed access into the femoral canal. The distal cutting guide was placed with 5? of valgus and 10 mm cut on the distal femur due to a 10?+ flexion contracture. Femur was sized using a posterior referencing guide in 3? of external rotation. This found have a best fit with the sizing noted above. The 4 in 1 cutting block was then placed, and the distal femur shaped accordingly. The box cut was then created and the trial implant inserted to confirm appropriate fit. We turned our attention to the proximal tibia. Extramedullary guide was utilized for cutting with the goal of being 90 degree cut from the mechanical axis of the tibia in the varus/valgus plane utilizing tibial crest as the primary alignment. Initially a 2 mm resection was performed from the medial tibial plateau. Ultimately, balancing was achieved in both flexion and extension in both varus and valgus. The knee was able to achieve full extension as well comfortably. The patella was initially measured and found have a thickness of 23 mm. It was resected back to approximately 14 mm. It was sized to be a best fit with as noted above. This was drilled, trial placed. All trials were placed and found to have an excellent stability and balance. At this stage, trial implants were removed, the knee was thoroughly irrigated with normal saline, and the cement was mixed. After irrigation, the knee was thoroughly dried, and cement placed, with the real tibial and femoral implants placed along with the patella. Trial poly spacer was placed and confirmed to have excellent range of motion and full extension, and the real poly spacer opened and inserted. All extra cement was removed, and a 3 min Betadine soak performed. Finally, a final irrigation round with normal saline was performed. Closure performed with 0 PDS and #0 Stratafix for the quad tendon/retinaculum. 2-0 Vicryl/Stratafix for the subcutaneous and 4-0 Monocryl for subcuticular closure. Dressings were applied and the patient was awoken from anesthesia after the tourniquet deflated and transferred the PACU in stable condition. A skilled benefits assistant was critical for this case to aid in patient positioning, tissue retraction, bone exposure, limb manipulation/positioning, patient safety, and closure. PLAN: 1. Weight bear as tolerated operative extremity. 2. 23 hr perioperative antibiotics. 3. Ice. 4. PT/OT consults for ambulation assistance/mobility education. 5. Social work consult for discharge planning. 6. DVT prophylaxis with at SCDs and aspirin twice daily.
--- NOTE | 2025-04-01 11:21 | CRLHL7_ITS ---
For Patients: As a result of the Cures Act, medical imaging exams and procedure reports are released immediately into your electronic medical record. You may view this report before your referring provider. If you have questions, please contact your health care provider. Indication: total knee replacement Technique: Two views left knee Findings/Impression: Hardware from a left total knee arthroplasty is in satisfactory position. Bone alignment is normal. No sign of acute fracture. Postop changes are within normal limits. Stable bone island left proximal tibia. Dictated by Curtis Wise MD @ 04/02/2025 11:26:26 AM (Electronically Signed)
--- NOTE | 2025-04-01 11:22 | P.ANES_ITS ---
Anesthesia Charges Start Date/Time Anesthesia Start Date: 04/01/25 Anesthesia Start Time: 09:12 Stop Date/Time Anesthesia Stop Date: 04/01/25 Anesthesia Stop Time: 11:25 Coding CPT Codes CPT Codes: ANESTH KNEE ARTHROPLASTY - 69225 ([id number]) QK - ORDER DETAILER 2-4 CNCRNT ANES PROC, QX - CONCRETE BLOCK MAKER SVC W/ MD MED DIRECTION, P2 - PATIENT W/MILD SYST DISEASE
--- NOTE | 2025-04-01 11:22 | W.ANESCHARGE ---
Anesthesia Charges Start Date/Time Anesthesia Start Date: 04/01/25 Anesthesia Start Time: 09:12 Stop Date/Time Anesthesia Stop Date: 04/01/25 Anesthesia Stop Time: 11:25 Coding CPT Codes CPT Codes: ANESTH KNEE ARTHROPLASTY - 25315 ([id number]) QK - CRIME LAB ANALYST 2-4 CNCRNT ANES PROC, QX - FIRE CHIEF SVC W/ MD MED DIRECTION, P2 - PATIENT W/MILD SYST DISEASE
[2025-04-01] MEDS: ONDANSETRON 2 MG/ML inj 4 MG IVP (11:51)
[2025-04-01] MEDS: METOCLOPRAMIDE HCL 5 MG/ML INJ 10 MG IVP (12:01)
--- NOTE | 2025-04-01 12:12 | SUR.PHASEI ---
patient met discharge criteria per anesthesia
--- NOTE | 2025-04-01 15:45 | SUR.PHASEII ---
Pt at PT from 3pm-3:35pm. Pt used restroom and then discharged home.
== END 2025-04-01 15:46 | disposition home or self-care (01) ==
LOC: OR 06:50
PROVIDERS: PCP Family Medicine; Visit Provider Orthopaedic Surgery Sports Medicine
PROC: (CPT 27447; principal; 2025-04-01 08:45)
DX: M17.12 Unilateral primary osteoarthritis, left knee (principal); G89.18 Other acute postprocedural pain
CPT/HCPCS: 27447; 01402; 64447; 64454; 73560; 76942; 97110; 97116; 97161; 97530; 99100; A9270; C1776; J0665; J0690; J1100; J2250; J2405; J2704; J2765; J3010; J7120

== ENCOUNTER 2025-05-16 08:30 | Outpatient (RCR) | payer MEDICARE, BC, SELFPAY ==
--- NOTE | 2025-04-03 16:44 | PT.OPEX ---
PT [facility] Eval PT [facility] Outpatient Eval Start: 04/03/25 12:59 Freq: Status: Active Protocol: Document 04/03/25 12:59 VINCE (Rec: 04/03/25 15:40 VINCE [id number]) E-signed By Aleksandra Feldman PT Physical Therapy Outpatient Evaluation Insurance Information Recert Due Date 07/01/25 Insurance Name Medicare B Medical Diagnosis LEFT KNEE OA Treating Diagnosis LEFT KNEE PAIN LEFT KNEE WEAKNESS LEFT KNEE STIFFNESS Referring MD RUSSELL Subjective Preferred Name SHAYLA Subjective SHAYLA RETURNS TODAY HAVING UNDERWENT A LEFT TKA ON 04/01/25 AND REPORTING, THIS KNEE IS BETTER THAN MY OTHER KNEE BACK IN SEPTEMBER. SHE IS NOT USING AN ASSISTIVE DEVICE AND REPORTS DILIGENT USE OF HER ICE SINCE SURGERY BUT NO MUCH PAIN TO SPEAK OF YET. SHE IS AN AVID HIKER AND, OVERALL ACTIVE PERSON WITH HOPES OF HAVING BETTER MGMT OF HER BACK ISSUES NOW THAT HER KNEES ARE NOT A PART OF THE PROBLEM. Pain Comments Date of Next 04/09/25 Physician Visit Date of Surgery (If 04/01/25 applicable) Current Work Status Retired Precautions Treatment PMHX: HEART MURMUR, HLD, RIGHT SCIATICA, LUMBAR Precautions/ RADICULOPATHY (RIGHT), LUMBAR DDD, HTN, OSTEOPOROSIS, H Contraindications /O RIGHT TKA 10/08/24 Weight Bearing Weight Bear as Tolerated Status Therapy Limitations/ Not Limited Systems Review Objective Other/Pertinent 04/03/25: 5-0-112; MOD EDEMA/ECHYMOSIS ABOUT THE THIGH, Objective KNEE AND CALF; BANDAGE INTACT Functional Test [id number] Performed & Score Assessment Assessment/ PATIENT IS A 69YO REFERRED BY CLIFF RUSSELL TO EVAL AND Impression TREAT S/P LEFT TKA (04/17). PATIENT DEMONSTRATES SIGNS AND SYMPTOMS CONSISTENT WITH S/P LEFT TKA (04/17) CONTRIBUTING TO THEIR FUNCTIONAL IMPAIRMENTS OF DIFFICULTY AMB COMMUNITY DISTANCE, STAIRS, SIT TO STAND TRANSFERS. PATIENT DESCRIBES THE FOLLOWING TRIGGERS WEIGHT FLEXION, STAIRS, PROLONGED STDG/WALKING WHICH ARE ALLEVIATED BY REST, ICE, AND PO OTC . PATIENT HAS NOTABLE OBJECTIVE FINDING INCLUDING MIN/MOD PAIN ABOUT THE THIGH AND KNEE WITH MOD EDEMA/ECCHYMOSIS, DECREASED ROM (5-0-110)/STRENGTH/AND FUNCTIONAL BALANCE WHICH ALL ARE CONTRIBUTING TO THE CLINICAL IMPRESSION. SHAYLA DEMONSTRATES INCREDIBLE ROM AND FUNCTIONAL GAIT FOR POD2. SHE IS REMINDED TO HONOR THE HEALING PROCESS AND LIMIT HER ACTIVITY TO FUNCTIONAL ACTIVITIES, PERFORM HER HEP INSTRUCTED, AND CONTINUE TO USE FREQUENTLY FOR SYMPTOM MGMT. PATIENT IS A GOOD CANDIDATE FOR SKILLED PHYSICAL THERAPY TO ADDRESS AFOREMENTIONED DEFICITS ABOVE IN ORDER TO RETURN TO HER COMMUNITY AMB, FAMILY AND PEER CENTERED ACTIVITIES, WELL HER HIKING. INTERVENTION IS NECESSARY BY WAY OF THERAPEUTIC EXERCISE, MANUAL THERAPY, NEUROMUSCULAR RE-EDUCATION, STABILIZATION/PROPRIOCEPTION, MODALITIES FOR SYMPTOM MGMT, PATIENT EDUCATION PLEASE REFER TO APPROPRIATE SECTION WITHIN THIS EVALUATION FOR COMPLETE LIST OF GOALS AND PLAN OF CARE. DISCHARGE PLAN AND CRITERIA IS FOR PATIENT TO ACHIEVE THE GOALS LISTED BELOW OR UNTIL MAX POTENTIAL MET. PATIENT VERBALIZED UNDERSTANDING AND AGREEABLE TO POC, FREQ, AND GOALS ESTABLISHED. Primary Functional TRANSFERS Limitations GAIT STOOPING KNEELING STAIRS STDG PAIN Plan of Care Rehabilitation Good Potential Physical Therapy 1. DECREASE LEFT KNEE PAIN TO </3/10 WITH ADL'S AND Goals PROGRESSION OF PHYSICAL THERAPY OVER THE NEXT 4-6 WEEKS 2. IMPROVE ROM OF LEFT KNEE TO 0-0-120 IN SUPINE (OR GREATER) TO RETURN TO FUNCTIONAL ROM AND IMPROVE GAIT MECHANICS OVER THE NEXT 6-8 WEEKS 3. IMPROVE LEFT KNEE/LE FUNCTIONAL MOBILITY AND FUNCTIONAL STRENGTH TO RETURN TO INDEPENDENT TRANSFERS WITH EASE, EXTENDED STANDING AND WALKING FOR ADL'S, HOUSEHOLD ACTIVITIES AND IMPROVED GAIT MECHANICS OVER THE NEXT 8-10 WEEKS. 4. PATIENT WILL DEMONSTRATE COMPLETE INDEPENDENCE AND THE ABILITY TO PROGRESS HIS HEP FOR MAINTENANCE AND CONTINUED IMPROVEMENT OF HERCORE / BLE STRENGTH AND STABILITY. Coordination/ Referral Source Communication With Frequency/Duration 1-2X/WK Patient Will Be Completion of LTG(s),Independently Progressing Discharged From Therapy Evaluation Billing Untimed Code 15 Treatment Minutes PT Eval No Charge No Complexity Low Certification Information Initial 04/03/25 Certification Date Ending Certification 07/01/25 Date Provider Signature Yes Required Provider Signature POC & Medical Necessity Shows Agreement With Physician NPI Number Write NPI# Here Physician Comment/ : Change Physician Signature Please Sign/Date Here & Date Requested
== END 2025-07-01 11:22 | disposition home or self-care (01) ==
PROVIDERS: PCP Family Medicine; Visit Provider Orthopaedic Surgery Sports Medicine
DX: Z47.1 Aftercare following joint replacement surgery (principal); Z96.652 Presence of left artificial knee joint; M17.12 Unilateral primary osteoarthritis, left knee; I10 Essential (primary) hypertension; E78.5 Hyperlipidemia, unspecified; M81.0 Age-related osteoporosis without current pathological fracture; Z00.00 Encounter for general adult medical examination without abnormal findings
CPT/HCPCS: 80053; 80061; 82306; 97110; 97161; 97535

== ENCOUNTER 2025-08-27 13:22 | Outpatient (CLI) | payer MEDICARE, BC, SELFPAY ==
--- NOTE | 2025-08-27 13:40 | CRLHL7_ITS ---
For Patients: As a result of the Century Cures Act, medical imaging exams and procedure reports are released immediately into your electronic medical record. You may view this report before your referring provider. If you have questions, please contact your health care provider. INDICATION: BILATERAL SCREENING MAMMOGRAM, ASYMPTOMATIC 69 Y/O FEMALE COMPARISON: 08/21/24, 07/07/23, 06/30/22 TECHNIQUE: Digital mammogram in CC and MLO projections including computer-aided detection (CAD) and tomosynthesis. BREAST COMPOSITION: The breasts are heterogeneously dense, which may obscure small masses. FINDINGS: No suspicious findings. ASSESSMENT: BI-RADS 1 Negative RECOMMENDATION: Annual screening mammogram. A lay language report of this examination will be provided to the patient. Dictated by: Curtis Wise MD @ 08/28/2025 10:12:34 (Electronically Signed)
== END 2025-08-27 13:23 | disposition home or self-care (01) ==
LOC: MAMMO 13:23
PROVIDERS: PCP Family Medicine; Visit Provider Family Medicine
DX: Z12.31 Encounter for screening mammogram for malignant neoplasm of breast (principal); R92.333 Mammographic heterogeneous density, bilateral breasts
CPT/HCPCS: 77063; 77067